=== PATIENT | male | born 1975 | race Caucasian/White ===

== ENCOUNTER 2018-11-19 10:08 | Emergency (ER) | payer BC, SELFPAY ==
[2018-11-19] MEDS ORDERED: Tetracaine 0.5% OPHTH SOLN/PF 4 ML BOT ONE (10:23)
[2018-11-19] MEDS ORDERED: Adacel (T-DAP) 0.5 ML SYRINGE ONE (10:23)
== END 2018-11-19 11:10 | disposition home or self-care (01) ==
LOC: MADERS 10:08
DX: S05.01XA Injury of conjunctiva and corneal abrasion without foreign body, right eye, initial encounter (principal); W22.8XXA Striking against or struck by other objects, initial encounter
CPT/HCPCS: 90471; 90715

== ENCOUNTER 2023-09-02 12:11 | Emergency (ER) | payer SELFPAY ==
[2023-09-02] MEDS ORDERED: Lactated Ringer's 1,000 ML ONE (12:33)
[2023-09-02 12:47] LABS: #Basophils 0.1 thou/uL (0.0-0.2); #Eosinphils 0.1 thou/uL (0.0-0.7); #Lymphocytes 1.7 thou/uL (1.20-3.40); #Monocytes 0.7 thou/uL (0.11-0.59); #Neutrophils 4.1 thou/uL (1.40-6.50); %Basophils 1.3 % (0.0-1.0); %Eosinophils 1.8 % (0.0-10.0); %Lymphocytes 25.4 % (21.0-51.0); %Neutrophils 61.5 % (42.0-75.0); Hemoglobin 16.2 g/dL (14.0-18.0); Mean Corpuscular HGB CONC 33.8 g/dL (32.0-36.0); Mean Corpuscular Volume 91.7 fl (78.0-98.0); Mean Platelet Volume 6.8 fL (7.4-10.4); Platelet Count 225 10x3/uL (130-400); RBC Distribution Width 10.9 % (11.5-14.5); Red Blood Cell (RBC) Count 5.23 mill/uL (4.70-6.10); White Blood Cell (WBC) Count 6.6 10x3/uL (4.8-10.8)
[2023-09-02] MEDS ORDERED: Nitroglycerin 0.4 MG TAB 1 EACH ONE (12:53)
[2023-09-02 13:11] LABS: ALT (SGPT) 182 U/L (8-55); AST (SGOT) 182 U/L (5-34); Albumin 4.5 g/dL (3.5-5.0); Alkaline Phosphatase 56 U/L (40-110); Anion Gap 19 mmol/L (10-20); BUN (Urea Nitrogen) 4 mg/dL (8.9-20.6); Bilirubin, Total 0.7 mg/dL (0.2-1.2); CK (CPK) 103 U/L (30-200); Calc. Creatinine Clearance 0 mL/min (70-130); Calcium 9.4 mg/dL (7.8-10.44); Carbon Dioxide 20 mmol/L (22-29); Chloride 105 mmol/L (98-107); Estimated GFR 109; Globulin 3.9 g/dL (2.4-3.5); Glucose 101 mg/dL (70-105); Lipase 47 U/L (8-78); Magnesium 1.9 mg/dL (1.6-2.6); Potassium 3.4 mmol/L (3.5-5.1); Protein, Total 8.4 g/dL (6.0-8.3); Sodium 141 mmol/L (136-145)
[2023-09-02 13:14] LABS: Troponin I Less than 0.010 ng/mL (< 0.028)
[2023-09-02] MEDS ORDERED: Potassium Chloride 20 MEQ TAB ONE (13:37)
== END 2023-09-02 14:46 | disposition home or self-care (01) ==
LOC: MADERS 12:11
DX: E87.6 Hypokalemia (principal); R07.89 Other chest pain; R94.5 Abnormal results of liver function studies; F17.200 Nicotine dependence, unspecified, uncomplicated
CPT/HCPCS: 71046; 80053; 82550; 83690; 83735; 84443; 84484; 85025; 85379; 93005; 94760; J7120